=== PATIENT | female | born 2000 | race Caucasian/White ===

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

== ENCOUNTER 2024-12-31 10:06 | Outpatient (CLI) | payer OTHER, SELFPAY ==
--- NOTE | ~2024-12-31 | XR_ITS ---
EXAM/ PROCEDURE: XR wrist LT min 3V - 12/31/2024 10:28 CDT HISTORY: 24 years old Female with LEFT WRIST PAIN COMPARISON: None available TECHNIQUE: Four view(s) FINDINGS/ IMPRESSION: There are no fractures or dislocations.Joint spaces are within normal limits. Reviewed, dictated and finalized at location A.
--- OUTSIDE RECORDS SUMMARY | 2024-12-31 10:13 | XMS_ITS | Clinical Summary ---
Author Organization [facility] Address [facility] [place] [address] Care Team Providers Care Zipper Joiner Name Role Phone Bony Yeung Primary Care Provider + Vernon Conner MD Unavailable [phone] Allergies No known active allergies Medications ondansetron (ZOFRAN-ODT) 4 MG disintegrating tablet Take 1 tablet (4 mg total) by mouth every 8 (eight) hours as needed for Nausea. 10 tablet 3 Active Encounters Date Type Department Care Team Description 12/16/2024 7:36 AM CDT - 12/16/2024 11:59 PM CDT Hospital Encounter [facility] [place] [address] Scott Ellsworth MD Discharge Disposition: Home or Self Care (Routine Discharge) from Last 3 Months Social History Tobacco Use Types Packs/Day Years Used Date Smoking Tobacco: Never Passive Smoke Exposure: Never Smokeless Tobacco: Never Tobacco Cessation:Counseling Given: No Comments Unknown Sex and Gender Information Value Date Recorded Sex Assigned at Female 07/12/2024 2:10 PM STAFF SERVICES MANAGER Legal Sex Female 8:15 PM CDT Gender Identity Not on file Sexual Orientation Not on file Last Filed Vital Signs Vital Sign Reading Time Taken Comments Blood Pressure 100/60 07/12/2024 5:53 PM STAFF SERVICES MANAGER Pulse 72 07/12/2024 5:53 PM STAFF SERVICES MANAGER Temperature 36.7 C (98 F) 07/12/2024 5:53 PM STAFF SERVICES MANAGER Respiratory Rate 18 07/12/2024 5:53 PM STAFF SERVICES MANAGER Oxygen Saturation 100% 07/12/2024 5:53 PM STAFF SERVICES MANAGER Inhaled Oxygen Concentration - - Weight 73.5 kg (162 lb) 07/12/2024 3:08 PM STAFF SERVICES MANAGER Height 160 cm (5' 3) 07/12/2024 3:08 PM STAFF SERVICES MANAGER Body Mass Index 28.7 07/12/2024 3:08 PM STAFF SERVICES MANAGER Plan of Treatment Health Maintenance Due Date Last Done Comments Cervical Cancer Screening Pap Smear (Age 21 to 29) Every 3 Years 2002 Cervical Cancer Screening 2002 Annual Physical 2005 Meningococcal B Vaccine (1 of 2 - Standard) 2018 Hepatitis C 2020 COVID-19 Vaccine ( season) 2024 DTaP, Tdap and Td Vaccines (9 - Td or Tdap) 02/07/2031 02/07/2021, 12/16/2013, 12/16/2013, Additional history exists Hepatitis B Vaccines Completed 04/15/2003, 2002, 2002 Pneumococcal Vaccine: Pediatrics (0 to 5 Years) and At-Risk Patients (6 to 49 Years) Aged Out 04/15/2003, 01/15/2003, 2002 No longer eligible based on patient's age to complete this topic HPV Vaccines Completed 07/06/2014, 03/10, 12/16/2013 Meningococcal Vaccine Completed 05/01/2020, 014 RSV Immunizations Under 20 Months Aged Out No longer eligible based on patient's age to complete this topic Procedures Procedure Name Priority Date/Time Associated Diagnosis Comments PATHOLOGY Routine 12/16/2024 12:00 AM CDT from Last 3 Months Results * Pathology (12/16/2024 12:00 AM CDT) PATHOLOGY [facility] Department of Laboratory Medicine [address] [place] [address] , extension [phone] Pathology Report Surgical Pathology Report Name: CHANA SARGENT Specimen #: [id number] Age: 1 2000 (Age: 24) Location: [facility] Sex: F Procedure Date: 12/16/2024 Hospital #: [id number] Date Received: 12/17/2024 Date Reported: 12/20/2024 Provider: SCOTT ELLSWORTH MD Source: Gastric biopsies Clinical History: Acute vomiting FINAL DIAGNOSIS: Stomach, site not further specified, biopsy: -Mild chronic inactive gastritis. -No Helicobacter pylori organisms identified. Gross Description: Received in formalin, labeled with a patient label and as gastric biopsy is a 0.2 cm piece of collazo tissue. The specimen is entirely submitted in cassette 1. Gross examination (when applicable), interpretation, and sign out were performed at [facility], [address] [place] [address]. Electronically Signed Out BRIDGETTE SONG MD [facility] 12/16/2024 12/17/2024 12: 47 PM CDT Comment:Gastric biopsies us Scott Ellsworth MD PATHOLOGY/CYTOLOGY ORDERABLES nal Result [facility] [address] [place] [phone], [id number] from Last 3 Months Insurance Care Teams Zipper Joiner Relationship Specialty Start Date End Date Bony Yeung PA [address] [place] [address] [place] [id number] PCP - General PHYSICIAN MECHANIST 07/12/24 Vernon Conner MD [address] [place] [address] [facility] 07/12/24
--- OUTSIDE RECORDS SUMMARY | 2024-12-31 10:13 | XMS_ITS | Clinical Summary ---
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 Role Phone Unavailable Primary Care Provider Unavailabl e Social History Tobacco Use Types Packs/Day Years Used Date Smoking Tobacco: Never Assessed Comments Unknown Sex and Gender Information Value Date Recorded Sex Assigned at Not on file Legal Sex Female 3:39 PM CDT Gender Identity Not on file Sexual Orientation Not on file Plan of Treatment Upcoming Encounters Date Type Department Care Team (Late st Contact Info) Description 02/03/2025 10:30 AM CDT Office Visit [facility] Oncology and Hematology - [place] [address] [place] [address] Jessica Pimentel MD [address] [place] [address] Health Maintenance Due Date Last Done Comments CHLAMYDIA SCREENING (ANNUAL) 11-24 YEARS 2013 HPV VACCINES (1 - 3-dose series) 2017 DTAP/TDAP/TD VACCINES (1 - Tdap) 2021 HEPATITIS B VACCINES (1 of 3 - 19+ 3-dose series) 02/2022 CERVICAL CANCER SCREENING 2023 HPV/Cotest (21-29) 2023 PAP SMEAR 2023 INFLUENZA VACCINE (#1) 2025 Insurance [facility] MEDICAID
--- OUTSIDE RECORDS SUMMARY | 2024-12-31 10:13 | XMS_ITS | Data Portability ---
Author Organization [place] [facility], Main Office Address [address] [place] [address] Care Team Providers Care Director Pharmacology Name Role Phone BRIDGER FERNÁNDEZ Primary Care Provider BRIDGER FERNÁNDEZ Referring Provider Assessment No assessment recorded. Plan of Treatment Reminders Order Date Submit Date Provider Last Modified By Organization Details Last Modified Time Details Appointments Follow Up 15 2024 09:45A M DAVID Reeves Not available Not available Not available Any 15 2024 11:15A M DAVID Reeves Not available Not available Not available Lab urinalysi s, dipstick 2024 025 LEANNE [facility], [address] [place] [address], [phone], 12/03/2024 11:00:34 glucose, fingersti ck, blood 2024 025 jose [facility], [address] [place] [address], [phone], 12/03/2024 10:47:14 tissue transglut aminase iga Ab, serum 2024 025 [email or web address] [facility] (Lab), [address] [place], [address], 12/02/2024 08:31:01 tissue transglut aminase igg Ab, serum [address] (Lab), [address] [place], [address], 12/02/2024 08:30:54 unlisted lab - immunoglo bulin IgA [address] [place] [address] (Lab), [address] [place], [address], 12/02/2024 08:30:15 alpha-gal actosidas e A, serum [address] [place] [address] (Lab), [address] [place], [address], 12/09/2024 08:58:58 tick-born e disease panel [address] [place] [address] (Lab), [address] [place], [address], 12/09/2024 08:58:42 porphyrin fractions panel, QN, serum or plasma [address] [place] [address] (Lab), [address] [place], [address], 12/09/2024 08:58:29 iron + TIBC + ferritin, serum [address] [place] [address] (Lab), [address] [place], [address], 12/02/2024 08:16:36 vitamin B12 + folate, serum or blood [address] [place] [address] (Lab), [address] [place], [address], 12/02/2024 08:16:10 erythrocy te sedimenta tion rate by westergre n method [address] [place] [address] (Lab), [address] [place], [address], 12/02/2024 08:16:56 C-reactiv e protein, quantitat jules, serum or plasma [address] (Lab), [address] [place], [address], 12/02/2024 08:16:47 EDU (antinucl ear antibodie s) screen, serum [address] (Lab), [address] [place], [address], 12/02/2024 08:17:06 calprotec tin, stool [address] (Lab), [address] [place], [address], 12/02/2024 08:15:45 giardia + cryptospo ridium Ag, stool [address] (Lab), [address] [place], [address], 12/02/2024 08:15:57 gastroint estinal pathogens panel, PCR, stool [address] (Lab), [address] [place], [address], 12/02/2024 08:17:19 Referral rheumatol ogist referral - Please call patient to schedule an appointme nt. Thank you. 2024 025 TANJA Cruz MD, [address] [facility], [address], [place], [address], 12/13/2024 14:29:44 hematolog ist/oncol ogist referral - 24 y/o with mild anemia , now bruising easily . Has GI issues since June . diarrhea , nausea vomiting . sending to GI . Please eval and treat . Please call patient to schedule an appointme nt. Thank you. 2024 025 [email or web address] Tyrese Persaud MD, [address], [place], [address], 11/19/2024 15:22:06 Procedures upper endoscopy procedure (EGD) (PROC) 2024 025 LEANNE Not available 12/16/2024 14:26:31 Surgeries None recorded. Imaging XR, wrist, 3 or more view 2024 025 [facility], [address], [place], [address], 12/31/2024 10:43:17 Medication Orders dicyclomi ne 20 mg tablet [address]/Pharmacy #[id number], [address] [place], [address], 12/03/2024 10:04:35 omeprazol e 40 mg capsule,d elayed release [address]/Pharmacy #6930, [address] [place], [address], 12/03/2024 10:05:08 famotidin e 20 mg tablet [address]/Pharmacy #6930, [address] [place], [address], 12/03/2024 10:04:39 ferrous sulfate ER 142 mg (45 mg iron) tablet,ex tended release [address]/Pharmacy #[id number], [address] [place], [address], 12/03/2024 10:04:44 Patient TargetsNo targets recorded. Patient Instructions Encounter Date Encounter Id Patient Instructions Last Modified By Organization Details Last Modified Time 11/04/2024 [id number] anemia: care instructions [email or web address] Not available 11/04/2024 11:03:44 11/18/2024 [id number] away under detailed discussion patient had this problems with nausea vomiting and diarrhea for almost 5 6 months in between she traveled to that makes things worse diarrhea is somewhat getting better but still patient has mushy stools different possibilities have been discussed patient also has been smoking marijuana which she tried to increase it up to improve her appetite I did discuss with her about cannabinoid uses marijuana cyclical vomiting syndrome I advised the patient that she needs to stop that meanwhile we will do some blood tests she does have celiac disease that runs in the family we will also check for porphyria as well as we will check that tick titers Alphagan antibodies. We will also check the stool calprotectin levels I advised the patient that we will proceed with the upper endoscopy to rule out any peptic ulcer disease if all these tests are negative would recommend patient to get a colonoscopy done to rule out any inflammatory bowel disease meanwhile I advised the patient that she needs to stop marijuana totally as it is not going to make the symptoms better and might make things worse and these symptoms might be because of all marijuana use [email or web address] Not available 11/18/2024 16:35:33 Reason for Referral 24 y/o with mild anemia , no w bruising easily . Has GI issues since June . diarrhea , nausea vomiting . sending to GI . Please eval and treat . Please call patient to schedule an appointment. Thank you. Referring Physician: Bony Yeung, Family Medicine, Encounter Date: 10/21/2024 Bulk System Operator Referral for Anti-nuclear factor detected Please call patient to schedule an appointment. Thank you. Referring Physician: Bridger Fernández, Family Medicine, Encounter Date: 12/03/2024 Results Created Date Observation Date Name Description Value Unit Range Abnormal Flag Note LastModifiedBy Organization Detail LastModifiedTime 12/04/19 25 12/03/2024 urina lysis , dipst ick Color [facility] Not Available [address], [address], 12/03/2024 10:40:51 12/04/19 25 12/03/2024 urina lysis , dipst ick Appearance Clear Not Available [address], [address], 12/03/2024 10:40:51 12/04/19 25 12/03/2024 urina lysis , dipst ick Leukocytes (reference range: negative yvrose/ l) Negati ve Not Available [address], [address], 12/03/2024 10:40:51 12/04/19 25 12/03/2024 urina lysis , dipst ick Nitrite (reference rage: negative mg/dl) negati ve Not Available [address], [address], 12/03/2024 10:40:51 12/04/19 25 12/03/2024 urina lysis , dipst ick Urobilinogen (reference range: 0.2-1 mg/dl) 0.2 Not Available [address], [address], 12/03/2024 10:40:51 12/04/19 25 12/03/2024 urina lysis , dipst ick Protein (reference range: negative mg/dl) Negati ve Not Available [address], [address], 12/03/2024 10:40:51 12/04/19 25 12/03/2024 urina lysis , dipst ick pH (reference range: 5-7) 5.5 Not Available [address], [address], 12/03/2024 10:40:51 12/04/19 25 12/03/2024 urina lysis , dipst ick Blood (reference range: negative Axel/ l) Hemoly zed: Trace Not Available [address], [address], 12/03/2024 10:40:51 12/04/19 25 12/03/2024 urina lysis , dipst ick Specific [place] (reference range: 1.005-1.030) 1.030 Not Available [address], [address], 12/03/2024 10:40:51 12/04/19 25 12/03/2024 urina lysis , dipst ick Ketone (reference range: negative mg/dl) Negati ve Not Available [address], [address], 12/03/2024 10:40:51 12/04/19 25 12/03/2024 urina lysis , dipst ick Bilirubin (reference range: negative mg/dl) Small Not Available [address], [address], 12/03/2024 10:40:51 12/04/19 25 12/03/2024 urina lysis , dipst ick Glucose (reference range: negative mg/dl) Negati ve Not Available [address], [address], 12/03/2024 10:40:51 12/04/19 25 12/03/2024 gluco se, finge rstic k, blood Blood Glucose: mg/dl 97 Not Available [address], [address], 12/03/2024 10:47:04 Result Notes None recorded. 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 808133838 Completed 12/03/2024 DAVID Reeves [address], [address], [place], [address], [email or web address] [facility] 5 11:31:41 Eruption 846214412 Completed 12/03/2024 DAVID Reeves [address], [place], [address], [facility] 5 11:31:41 Attentio n deficit hyperact ivity disorder , predomin antly inattent jules type 73766153 Completed 12/03/2024 DAVID Reeves [address], [place], [address], [facility] 5 11:31:41 Attentio n deficit hyperact ivity disorder 498841510 Completed 12/03/2024 DAVID Reeves [address], [place], [address], [facility] 5 11:31:41 Eczema 54244529 Completed 12/03/2024 DAVID Reeves [address], [place], [address], [facility] 5 11:31:41 Hand pain 43057084 Completed 12/03/2024 DAVID Reeves [address], [place], [address], [facility] 5 11:31:41 Pustular follicul itis 46257623 Completed 12/03/2024 DAVID Reeves [address], [place], [address], [facility] 5 11:31:41 Pain of left hip joint 68855103782 9100 Completed 202212/03/2024 DAVID Reeves [address], [place], [address], [employer] [facility] 5 11:31:41 Acute urinary tract infectio n 580785324 Completed 202212/03/2024 DAVID Reeves [address], [place], [address], [employer] [facility] 5 11:31:41 Family history of diabetes mellitus 544350049 Completed 202212/03/2024 DAVID Reeves [address], [place], [address], [facility] 11:31:40 Upper respirat ory infectio n 58874782 Completed 202312/03/2024 DAVID Reeves [address], [place], [address], [facility] 11:31:41 Strain of tendon of left wrist 68638481102 180882 Completed 202312/03/2024 DAVID Reeves [address], [place], [address], [employer] [facility] 5 11:31:40 Pain of left wrist 46645513018 9102 Completed 202312/03/2024 DAVID Reeves [address], [place], [address], [email or web address] [facility] 10:41:33 Cyst of right ovary 66239912010 081264 Completed 202412/03/2024 DAVID Reeves [address], [place], [address], [employer] [facility] [employer] 5 11:31:40 Nausea 710578604 Completed 202412/03/2024 Rocael Ellsworth MD [address], [place], [address], [employer] [facility] 12:29:24 Diarrhea 42567622 Active 2024 BLAINE Salgado [address], [place], [address], [employer] [facility] 10:57:44 Nausea and vomiting 55706981 Completed 202412/03/2024 DAVID Reeves [address], [place], [address], [employer] [facility] 11:31:41 Vomiting 828940123 Completed 202412/03/2024 DAVID Reeves [address], [place], [address], [employer] [facility] 11:31:41 Abdomina l pain 92926659 Completed 202412/03/2024 DAVID Reeves [address], [place], [address], [email or web address] [facility] 11:31:41 Anemia 561151502 Active 2024 Joni Knowles MD [address], [place], [address], [employer] [facility] 10:32:33 Celiac disease 840022790 Active 2024 BLAINE Salgado [address], [place], [address], [employer] [facility] 11:06:16 Gastroes ophageal reflux disease without esophagi tis 147825177 Completed 202412/03/2024 DAVID Reeves [address], [place], [address], [employer] [facility] 11:31:41 Attentio n deficit hyperact ivity disorder , combined type 78277628 Active 2024 Joni Knowles MD [address], [place], [address], [facility] [employer] [facility] [employer] [facility] 10:37:24 Cyclical vomiting syndrome 71001047 Active 2024 Joni Knowles MD [address], [place], [address], [employer] [facility] [employer] [facility] 11:02:42 Irritabl e bowel syndrome 62814734 Active 2024 Joni Knowles MD [address], [place], [address], [employer] [facility] [employer] [facility] 11:03:20 Acute vomiting 22515798 Completed 202412/03/2024 DAVID Reeves [address], [place], [address], [employer] [facility] [employer] [facility] 11:31:55 Anti-nuc lear factor detected 693963016 Active 2024 DAVID Reeves [address], [place], [address], [employer] [facility] [employer] [facility] 10:37:29 Increase d frequenc y of urinatio n 510062401 Active 2024 DAVID Reeves [address], [place], [address], [facility] [employer] [facility] [employer] [facility] 5 10:40:45 Unintent ional weight loss 160013644 Active 2024 DAVID Reeves [address], [place], [address], [facility] [employer] [facility] [employer] [facility] 5 11:32:01 Arthriti s 9307778 Active 2024 Rocael Ellsworth MD [address] [address], [place], [address], [employer] 12:26:16 Fatigue 31538157 Active 2024 Rocael Ellsworth MD [address] [address], [place], [address], [employer] 5 12:26:16 Pain of multiple joints 74771770 Active 2024 Rocael Ellsworth MD [address] [address], [place], [address], [employer] 12:27:16 Raised antinucl ear antibody 876618865 Active 2024 Rocael Ellsworth MD [address] [address], [place], [address], [employer] 12:28:38 Nausea 717005048 Active 2024 Rocael Ellsworth MD [address] [address], [place], [address], [employer] 12:29:24 Pain of left wrist 49869604437 9102 Active 2024 DAVID Reeves [address], [address], [employer] 10:41:33 Problem Notes None recorded. Procedures Surgical History Date Name Laterality Status Provider Name and Address Organization Details Recorded Time 11/25/2024 Date of Last Pap Smear completed Eugenia Miguel RN [facility] 12/31/2024 10:16:33 Imaging Results None recorded. Procedure Notes None recorded. Medical Equipment None Reported. Allergies No known drug allergies Medications Name Sig Start Date Stop Date Status Note LastModified by Organization Details LastModified Time amoxicillin 500 mg capsule 04/03 completed Not Available Not Available Not Available triamcinolo ne acetonide 0.5 % topical cream APPLY TOPICALLY TO THE AFFECTED AREA TWICE DAILY NEEDED 09/07 completed Not Available Not Available Not Available azithromyci n 250 mg tablet G HCANA 2 TS PO ON DAY 1 THEN 1 T D FOR 4 MORE DAYS active Not Available Not Available No t Available ibuprofen 800 mg tablet TAKE 1 TABLET BY MOUTH THREE TIMES A DAY WITH MEALS 12/03 completed Not Available Not Available Not Available hydrocodone 5 mg-acetamin ophen 325 mg tablet TAKE 1 TABLET BY MOUTH TWICE DAILY NEEDED 07/27 completed Not Available Not Available Not Available phenazopyri dine 200 mg tablet TAKE 1 TABLET BY MOUTH THREE TIMES DAILY FOR 2 DAYS 06/26 completed Not Available Not Available Not Available prednisone 20 mg tablet TAKE 1 TABLET BY MOUTH EVERY DAY FOR 5 DAYS 09/23 completed Not Available Not Available Not Available metronidazo le 500 mg tablet TAKE 1 TABLET BY MOUTH EVERY 8 HOURS FOR 7 DAYS 11/04 completed Not Available Not Available Not Available ciprofloxac in 500 mg tablet TAKE 1 TABLET BY MOUTH EVERY 12 HOURS FOR 10 DAYS 10/07 completed Not Available Not Available Not Available sulfamethox azole 800 mg-trimetho prim 160 mg tablet TAKE 1 TABLET BY MOUTH EVERY 12 HOURS FOR 10 DAYS 06/26 completed Not Available Not Available Not Available omeprazole 40 mg capsule,del ayed release Take 1 capsule every day by oral route in the morning for 30 days. 12/03 completed Not Available Not Available Not Available triamcinolo ne acetonide 0.1 % topical cream Apply 1 applicati on twice a day by topical route for 30 days. active Not Available Not Available No t Available ondansetron 8 mg disintegrat ing tablet PLACE 1 TABLET ON THE TONGUE TWICE A DAY 12/03 completed Not Available Not Available Not Available dexmethylph enidate 10 mg tablet TK 1 T PO AT 2 TO 3 PM D 06/23 completed Not Available Not Available Not Available Bactroban 2 % topical cream Apply 1 applicati on 3 times a day by topical route. active Not Available Not Available No t Available famotidine 20 mg tablet Take 1 tablet every day by oral route at bedtime for 30 days. 12/03 completed Not Available Not Available Not Available dicyclomine 20 mg tablet Take 1 tablet every 8 hours by oral route as directed for 30 days. 12/03 completed Not Available Not Available Not Available meclizine 25 mg tablet TAKE 2 TABLETS BY MOUTH DAILY NEEDED FOR 30 DAYS 09/07 completed Not Available Not Available Not Available oseltamivir 75 mg capsule 06/23 completed Not Available Not Available Not Available ferrous sulfate 325 mg (65 mg iron) tablet TAKE 1 TABLET BY MOUTH EVERY DAY FOR 30 DAYS 12/03 completed Not Available Not Available Not Available Motion Sickness Relief 50 mg tablet 1 tab po once a daily as needed for 30 days 10/07 completed Not Available Not Available Not Available mupirocin 2 % topical ointment Apply by topical route up to 3 times a day. active Not Available Not Available No t Available methylpredn isolone 4 mg tablets in a dose pack FOLLOW PACKAGE DIRECTION S 09/23 completed Not Available Not Available Not Available ondansetron 4 mg disintegrat ing tablet PLACE 1 TABLET EVERY DAY BY TRANSLING UAL ROUTE NEEDED FOR 30 DAYS. 10/07 completed Not Available Not Available Not Available sertraline 50 mg tablet Take 1/2 tab daily x 2 weeks. Then 1 tab daily thereafte r 06/23 completed Not Available Not Available Not Available doxycycline hyclate 100 mg tablet TAKE 1 TABLET BY MOUTH TWICE DAILY FOR 10 DAYS 09/23 completed Not Available Not Available Not Available dicyclomine 10 mg capsule TAKE 1 CAPSULE BY MOUTH 3 TIMES A DAY BEFORE MEALS 10/07 completed Not Available Not Available Not Available amoxicillin 875 mg-potassiu m clavulanate 125 mg tablet TAKE ONE TABLET BY MOUTH EVERY 12 HOURS FOR 10 DAYS 09/23 completed Not Available Not Available Not Available escitalopra m 10 mg tablet TAKE 1 TABLET BY MOUTH EVERY DAY 04/03 completed Not Available Not Available Not Available minocycline 100 mg tablet TK ONE T PO BID 12/07 completed Not Available Not Available Not Available Tri-Sprinte c (28) 0.18 mg(7)/0.215 mg(7)/0.25 mg(7)-0.035 mg tablet Take 1 tablet every day by oral route. active Not Available Not Available No t Available Focalin XR 20 mg capsule,ext ended release TAKE 1 CAPSULE BY MOUTH EVERY DAY 12/03 completed Not Available Not Available Not Available ferrous sulfate ER 142 mg (45 mg iron) tablet,exte nded release Take 1 tablet every day by oral route for 30 days. 12/03 completed Not Available Not Available Not Available Kyleena 17.5 mcg/24 hr (up to 5 years) 19.5 mg intrauterin e device Take by intrauter ine route. 2021 active Not Available Not Available Not Avai lable Vitals Date Recorded Body height Body mass index (BMI) Body weight Body temperature Heart rate Oxygen saturation Oxygen saturation in Arterial blood by Pulse oximetry Systolic And Diastolic Provider Name and Address Organization Details Last Updated DateTime 5 160.02 cm 22.1 kg/m2 33518.0 5 g 97.8 [degF] 108 /min 98 % 98 % 98/62 mm[Hg] Jen Clemons [facility] [employer] 5 10:33:41 Date Recorded Body height Body mass index (BMI) Body weight Body temperature Oxygen saturation Oxygen saturation in Arterial blood by Pulse oximetry Heart rate Systolic And Diastolic Provider Name and Address Organization Details Last Updated DateTime 5 160.02 cm 22.4 kg/m2 51644.4 4 g 98.1 [degF] 99 % 99 % 52 /min 100/64 mm[Hg] Darcy Judge RN [facility] [employer] [facility] 5 10:27:37 Date Recorded Body height Body mass index (BMI) Body weight Heart rate Oxygen saturation Oxygen saturation in Arterial blood by Pulse oximetry Systolic And Diastolic Provider Name and Address Organization Details Last Updated DateTime 5 160.02 cm 22 kg/m2 71626.4 5 g 97 /min 98 % 98 % 122/82 mm[Hg] Eva Morley [facility] 5 15:37:19 Date Recorded Body height Body mass index (BMI) Body weight Body temperature Heart rate Oxygen saturation Oxygen saturation in Arterial blood by Pulse oximetry Respiratory rate Pain severity - 0-10 verbal numeric rating [Score] - Reported Systolic And Diastolic Provider Name and Address Organization Details Last Updated DateTime 5 160.02 cm 21.3 kg/m2 30616.8 3 g 97.6 [degF] 82 /min 99 % 99 % 20 /min 0 112/60 mm[Hg] Eugenia Miguel RN [facility] [employer] [facility] 10:08:32 Date Recorded Body height Body mass index (BMI) Body weight Body temperature Heart rate Oxygen saturation Oxygen saturation in Arterial blood by Pulse oximetry Pain severity - 0-10 verbal numeric rating [Score] - Reported Respiratory rate Systolic And Diastolic Provider Name and Address Organization Details Last Updated DateTime 160.02 cm 20.6 kg/m2 78280.5 1 g 97.3 [degF] 59 /min 99 % 99 % 0 20 /min 90/64 mm[Hg] Eugenia Miguel RN [facility] 10:14:42 Social History Question Answer Notes LastModified by Organizat ion Details LastModified Time Tobacco Smoking Status Never Smoker SYLVIA Romano, [employer] [facility] 10/01/2023 15:40:13 Do You Have An Advance Directive? No Information not available 12/03/2024 Is Blood Transfusion Acceptable In An Emergency? No Information not available 12/03/2024 What Is Your Level Of Caffeine Consumption? Moderate Information not available 12/03/2024 In The 14 Days Before Symptom Onset, Have You Had Close Contact With A Laboratory-confi rmed COVID-19 While That Case Was Ill? No Information not available 12/03/2024 In The 14 Days Before Symptom Onset, Have You Had Close Contact With A Person Who Is Under Investigation For COVID-19 While That Person Was Ill? No Information not available 12/03/2024 What Type Of Diet Are You Following? REGULAR [id number] Information not available 08/07/2022 Have There Been Any Changes To Your Family Or Social Situation? Yes Losing Weight Information not available 12/03/2024 Are There Any Guns Present In Your Home? Yes Information not available 12/03/2024 Do You Use Insect Repellent Routinely? Yes Information not available 12/03/2024 Where Do You Live? SingleLevelHouse Information not available 12/03/2024 Do You Have A Medical Power Of Event Coordinator? No Information not available 12/03/2024 How Many Children Do You Have? 1 Information not available 12/03/2024 Do You Have Any Pets? No Information not available 12/03/2024 What Is Your Relationship Status? Single Information not available 12/03/2024 Do You Use Your Seat Belt Or Car Seat Routinely? Yes Information not available 12/03/2024 Do You Have Smoke And Carbon Monoxide Detectors In Your Home? Yes Information not available 12/03/2024 Are You Passively Exposed To Smoke? No Information not available 12/03/2024 Are There Any Smokers In Your House? No Information not available 12/03/2024 Do You Participate In Social Media? Yes Information not available 12/03/2024 Do You Use Sunscreen Routinely? Yes Information not available 12/03/2024 Have You Recently Traveled Abroad? No Information not available 12/03/2024 Sex: Unknown Functional Status Question Answer Note LastModified by Organization D etails LastModified Time What is your level of alcohol consumption? None [email or web address] Information not available 10/01/2023 Are you currently employed? Yes Information not available 12/03/2024 What is your occupation? [employer] Information not available 12/03/2024 Mental Status Question Answer Note LastModified by Organization D etails LastModified Time Do you feel stressed (tense, restless, nervous, or anxious, or unable to sleep at night)? [id number] Information not available 12/31/2024 Family History Relationship Description Onset Age of this Age Resolved Age Notes LastModified by Organization Details LastModified Time Mother Hypertensive disorder [email or web address] Not available 2023 15:39:45 Maternal Grandmother Diabetes mellitus [email or web address] Not available 2023 15:39:59 Medical History Condition Response OTHER # 1 Y HEARTBURN / REFLUX Y ADD/ADHD Y Gynecological History Statement/Question Response Abnormal Pap N Flow Moderate Date of LMP 10/12/2024 Frequency of Cycle (Q days) Duration of Flow (days) 3 Date of Last Pap Smear 11/25/2024 Obstetrics History GPAL:G 1 P 0 0 0 1 Type Value Living 1 Total 1 Immunizations Vaccine Type Date Status Note Provider Nam e and Address Organization Details Recorded Time HPV, quadrivalent 4 completed VICTOR MANUEL Clayton, Metrilo [facility] 12/31/2024 10:09:48 DTaP 4 completed Not Available [facility] 07/20/2023 11:04:52 Hep A, ped/adol, 2 dose 4 completed VICTOR MANUEL Clayton, Metrilo [facility] 12/31/2024 10:09:48 MMR 8 completed Not Available [facility] 07/20/2023 11:04:51 IPV 8 completed Not Available [facility] 07/20/2023 11:04:51 Hib (HbOC) 8 completed Not Available [facility] 07/20/2023 11:04:52 DTaP 8 completed Not Available [facility] 07/20/2023 11:04:52 varicella 8 completed Not Available [facility] 07/20/2023 11:04:51 Hib (HbOC) 4 completed VICTOR MANUEL Clayton, Metrilo [facility] 12/31/2024 10:09:48 DTaP 4 completed Not Available [facility] 07/20/2023 11:04:52 varicella 4 completed Not Available [facility] 07/20/2023 11:04:51 MMR 4 completed Not Available [facility] 07/20/2023 11:04:51 Hep B, adolescent or pediatric 3 completed Not Available [facility] 07/20/2023 11:04:51 DTaP 3 completed Not Available [facility] 07/20/2023 11:04:52 OPV, trivalent 3 completed Not Available [facility] 07/20/2023 11:04:51 Hib (HbOC) 3 completed VICTOR MANUEL Clayton, Metrilo [facility] 12/31/2024 10:09:48 Hib (HbOC) 3 completed Eugenia Miguel RN null, [place] 12/31/2024 10:09:48 DTaP 3 completed Not Available [facility] 07/20/2023 11:04:52 OPV, trivalent 3 completed Not Available [facility] 07/20/2023 11:04:51 Hib (HbOC) 3 completed Eugenia Miguel RN null, [facility] 12/31/2024 10:09:48 OPV, trivalent 3 completed Not Available [facility] 07/20/2023 11:04:51 DTaP 3 completed Not Available [facility] 07/20/2023 11:04:52 Hep B, adolescent or pediatric 3 completed Not Available [facility] 07/20/2023 11:04:51 Hep B, adolescent or pediatric 3 completed Eugenia Miguel RN null, [facility] 12/31/2024 10:09:48 Past Encounters Encounter ID Performer Location Encounter Start Date Encounter Closed Date Diagnosis/Indication Diagnosis SNOMED-CT Code Diagnosis ICD10 Code Diagnosis Note [id number] Vernon Martinez MD [facility] [place] [address] [facility] [place] [address] 11/02/2021 00:00:00 11/02/2021 21:06:52 [id number] Vernon Martinez MD [facility] [place] [address] [place] [address] 12/07/2021 00:00:00 12/08/2021 11:53:14 [id number] Vernon Martinez MD [facility] [place] [address] [place] [address] 04/05/2022 00:00:00 04/06/2022 11:55:23 [id number] Vernon Martinez MD [facility] [place] [address] [place] [address] 04/03/2023 11:04:34 04/03/2023 11:42:05 Adult health examination 049844420 Z00.00 Pain of le ft hip joint 5454273608 34266 M25.552 Heat to area NSAIDs [id number] Vernon Martinez MD [facility] [place] [address] [place] [address] 05/29/2023 12:17:08 05/29/2023 12:52:56 Acute urinary tract infection 181408495 N39.0 Attention deficit hyperactivity disorder, 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 Family his tory of diabetes mellitus 468607214 Z83.3 [id number] Vernon Martinez MD [facility] [place] [address] [place] [address] 06/26/2023 11:00:52 06/26/2023 11:39:37 Acute urinary tract infection 612818317 N39.0 Attention deficit hyperactivity disorder, predominantly inattentive type 31298223 F90.0 Eczema 73225587 L30.9 [id number] Joni Knowles MD [facility] [place] [facility] [place] [address] 09/24/2023 13:53:12 09/24/2023 14:28:17 Strain of tendon of left wrist 8278131241 1797912 S66.912A Attention deficit hyperactivity disorder, predominantly inattentive type 38616969 F90.0 [id number] Fredrick Pedro MD [facility] [place] [address] [place] [address] 10/01/2023 15:23:35 10/01/2023 16:01:26 Pain of left wrist 0293084391 46323 M25.427 [id number] Joni Knowles MD [facility] [place] [address] [place] [address] 10/09/2023 12:12:58 10/09/2023 12:35:45 Attention deficit hyperactivity disorder, predominantly inattentive type 63272394 F90.0 Pain of le ft hip joint 8470068227 70762 M25.552 Strain of tendon of left wrist 3926760913 8165651 S66.912A [id number] Joni Knowles MD [address] [address] 07/19/2024 11:48:08 07/19/2024 12:25:07 Cyst of right ovary 3997293608 7510137 N83.201 Nausea 637902449 R11.0 Attention deficit hyperactivity disorder, predominantly inattentive type 96109376 F90.0 Long-term current use of stimulant 9352569124 5126820 Z79.734 [id number] Joni Knowles MD [address] [address] 09/07/2024 10:13:25 09/07/2024 12:05:12 Attention deficit hyperactivity disorder, predominantly inattentive type 35057646 F90.0 Diarrhea 15355807 R19.7 Nausea 525054338 R11.0 Vomiting 806325867 R11.1 0 Abdominal pain 93772685 R10.9 Anemia 476523427 D64.9 Acute urin tonie tract infection 591342741 N39.0 [id number] Joni Knowles MD [address] [address] 09/23/2024 11:51:04 09/23/2024 12:07:12 [id number] Joni Knowles MD [address] [address] 10/07/2024 09:51:08 10/07/2024 10:51:57 Diarrhea 26630543 R19.7 Nausea 735969276 R11.0 Attention deficit hyperactivity disorder, predominantly inattentive type 59926722 F90.0 Celiac disease 847861663 K90.0 [id number] Joni Knowles MD [address] [address] 10/21/2024 10:20:46 10/21/2024 12:11:17 Anemia 391531483 D64.9 [id number] Joni Knowles MD [address] [address] 11/04/2024 10:10:41 11/04/2024 11:20:23 Nausea and vomiting 74098463 R11.2 Anemia 579903521 D64.9 Gastroesop hageal reflux disease without esophagitis 659554875 K21.9 Attention deficit hyperactivity disorder, combined type 17258683 F90.2 Cyclical v omiting syndrome 50356639 R11.15 ?? Irritable bowel syndrome 80589381 K58.9 ?? [id number] Rocael Ellsworth MD [facility] General Surgery [address] [place] [address] 11/18/2024 15:33:17 11/18/2024 17:17:42 Abdominal pain 50284122 R10.9 Acute vomiting 39270339 R11.10 [id number] Joni Knowles MD [address] [address] 12/03/2024 09:52:31 12/03/2024 11:33:48 Anti-nuclear factor detected 981810777 R76.8 likely infectious process Increased frequency of urination 576383576 R35.0 For the last week, increased urination, urge to urinate, small amount of output Cyclical v omiting syndrome 03199800 R11.15 Is seeing GIDrinking protein drinksZofr an ineffectiv e Unintentio nal weight loss 516114112 R63.4 down 50 lbs [id number] Joni Knowles MD [address] [address] 12/31/2024 09:56:30 12/31/2024 11:07:59 Pain of left wrist 2431652729 87956 M25.532 related to fall at work Unintentio nal weight loss 309912510 R63.4 down 50 lbs Will continue FU with GI and rheumatolo gy Health Concerns Section Related Observation LastModified by Organization Detai ls LastModified Time None Recorded Concern Status LastModified by Organization Details LastModified Time None Recorded Advance Directives Directive N: Payers Insurance Date Sequence Insurance Name Policy Number Policy Barker Covered Member ID Barker Member ID Guarantor Name 12/29/2024 1 [facility] - DOS ON OR AFTER 20 (MEDICAID REPLACEMENT - HMO) Chana Cook [id number] Chana Cook Notes Date Note Type Note Provider Name and Address Organization Details Recorded Time 10/21/2024 text/html ROS as noted in the HPI did pass out momentarily twice . vomiting less , stools a little formed now , the stronger ondansetron seems to help , stronger dicyclomine too . bruising a little better ... BLAINE Salgado [address], [place], [address], [employer] 10/26/2024 14:44:11 11/04/2024 text/html ACV: C/o nausea and vomiting for last 5-6 months, on/off. Pt has seen Mason for this and he has referred pt to GI and pt will be seeing him in 2 weeks. Denies any BM changes/concerns/blo od in stool. Denies any chance of . Pt says she had about 4-5 preg tests done recently and all are neg. Pt has IUD too. Pt had irregular and heavy periods before, but for last few months, its much better now. Pt had mild Anemia and Mason has referred her to Hemat. Denies any mood problems. Pt wants to f/u with Bridger as her new PCP. Joni Knowles MD [address], [place], [address], [employer] 11/04/2024 11:05:27 11/18/2024 text/html patient is seen 1st time in the office patient says that in June she went to [facility] but before going there few days before she started having problems with nausea vomiting and some diarrhea but then when she came back and got worse according to her she usually weighs around 165 lb but it went to 116 still has lot of nausea and vomiting appetite is okay but with nausea vomiting and abdominal pain she does not want to eat that much also says her diarrhea is getting better the stool is mushy denies any blood in the stool. Patient did have an ultrasound and lab workup which was reviewed also according to her she has some menstrual irregularities also says that her iron levels are very low. Patient's last hemoglobin was 12.9 all the records were reviewed also she according to her she has seen some tics and cockroaches in the house according to her she lives in a open forearm area Rocael Ellsworth MD [address], [place], [address], [employer] 11/18/2024 16:36:05 12/03/2024 text/html Chana Cook is a 24 year old female patient here today to establish care. She was under the care of Mason Yeung. She has been ill for the last 6 months she has been vomiting consistently. She is down 50 lbs (162-116). She has seen GI, significant lab panel indicated positive EDU - pattern likely from disease process. Pt would still like to see rheumatology.She is scheduled for an EGD on 12/16/24, she would also like colonoscopy due to weight loss -advised to contact GI doctor. She has had episodes of syncope, most recently related to lab draw.She has been told she has iron deficiency anemia and has an appointment with hematology for 02/03/25. Most recent TIBC/iron panel unremarkable. She has concerns with increase urinary frequency. She notes that she often feels she has to urinate but has very little output. She notes that she fell at work on 12/02/24 and injured her left shoulder and wrist. She decided at that point to not seek emergency care. She does have some swelling to the left wrist now but minor pain and full active ROM. DAVID Reeves [address], [place], [address], [employer] 12/03/2024 11:32:39 12/31/2024 text/html Chana Cook is a 24 year old female patient here today for a month FU She has been ill for the last 6 months she has been vomiting consistently. She is down 50 lbs (162-116). She has seen GI, significant lab panel indicated positive EDU - pattern likely from disease process. Pt would still like to see rheumatology.She is scheduled for an EGD on 12/16/24, she would also like colonoscopy due to weight loss -advised to contact GI doctor. She has had episodes of syncope, most recently related to lab draw.She has been told she has iron deficiency anemia and has an appointment with hematology for 02/03/25. Most recent TIBC/iron panel unremarkable. She notes that she fell at work on 12/02/24 and injured her left shoulder and wrist. She decided at that point to not seek emergency care. She does have some swelling to the left wrist now but minor pain and full active ROM. Bridger Fernández, [employer] [address] [facility] [facility] [address], [place], [address], [place] [facility] 12/31/2024 11:07:58 OBGyn Episode No OBEpisode recorded.
--- OUTSIDE RECORDS SUMMARY | 2024-12-31 10:13 | XMS_ITS | Continuity of Care Document ---
Author Organization [facility], [facility] Address [address] [place] [address] Care Team Providers Care Smoking Pipe Maker Name Role Phone BRIDGER FERNÁNDEZ Primary Care Provider [phone] BRIDGER FERNÁNDEZ Referring Provider [phone] Assessment No assessment recorded. Plan of Treatment Reminders Order Date Submit Date Provider Last Modified By Organization Details Last Modified Time Details Appointments Follow Up 15 2024 09:45A M DAVID Reeves Not available Not available Not available Any 2024 11:15A M DAVID Reeves Not available Not available Not available Lab None recorded . Referral None recorded . Procedures None recorded . Surgeries None recorded . Imaging XR, wrist, 3 or more view [address] [place] [address], [address] [place] [address], [address], 12/31/2024 10:43:17 Medication Orders None recorded . Patient TargetsNo targets recorded. Patient InstructionsNo instructions recorded. Reason for Referral None Reported. Results Created Date Observation Date Name Description Value Unit Range Abnormal Flag Note LastModifiedBy Organization Detail LastModifiedTime 12/04/1912/03/2024 urina lysis , dipst ick Color Charles Not Available [facility] [address] [facility], [place], [address], 12/03/2024 10:40:51 12/04/1912/03/2024 urina lysis , dipst ick Appearance Clear Not Available [address], [address], 12/03/2024 10:40:51 12/04/19 25 12/03/2024 urina lysis , dipst ick Leukocytes (reference range: negative yvrose/ l) Negati ve Not Available [address], [address], 12/03/2024 10:40:51 12/04/19 25 12/03/2024 urina lysis , dipst ick Nitrite (reference rage: negative mg/dl) negati ve Not Available [address], [address], 12/03/2024 10:40:51 12/04/19 25 12/03/2024 urina lysis , dipst ick Urobilinogen (reference range: 0.2-1 mg/dl) 0.2 Not Available [address], [address], 12/03/2024 10:40:51 12/04/19 25 12/03/2024 urina lysis , dipst ick Protein (reference range: negative mg/dl) Negati ve Not Available [address], [address], 12/03/2024 10:40:51 12/04/19 25 12/03/2024 urina lysis , dipst ick pH (reference range: 5-7) 5.5 Not Available [address], [address], 12/03/2024 10:40:51 12/04/19 25 12/03/2024 urina lysis , dipst ick Blood (reference range: negative Axel/ l) Hemoly zed: Trace Not Available [address], [address], 12/03/2024 10:40:51 12/04/19 25 12/03/2024 urina lysis , dipst ick Specific [place] (reference range: 1.005-1.030) 1.030 Not Available [address], [address], 12/03/2024 10:40:51 12/04/19 25 12/03/2024 urina lysis , dipst ick Ketone (reference range: negative mg/dl) Negati ve Not Available [address], [address], 12/03/2024 10:40:51 12/04/19 25 12/03/2024 urina lysis , dipst ick Bilirubin (reference range: negative mg/dl) Small Not Available [address], [address], 12/03/2024 10:40:51 12/04/19 25 12/03/2024 urina lysis , dipst ick Glucose (reference range: negative mg/dl) Negati ve Not Available [address], [address], 12/03/2024 10:40:51 12/04/19 25 12/03/2024 gluco se, finge rstic k, blood Blood Glucose: mg/dl 97 Not Available [address], [address], 12/03/2024 10:47:04 Result Notes None recorded. 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 389749789 Completed 12/03/2024 DAVID Reeves [address], [place], [address], [employer] 5 11:31:41 Eruption 072879341 Completed 12/03/2024 DAVID Reeves [address], [place], [address], [employer] 5 11:31:41 Attentio n deficit hyperact ivity disorder , predomin antly inattent jules type 23612699 Completed 12/03/2024 DAVID Reeves [address], [place], [address], [employer] 5 11:31:41 Attentio n deficit hyperact ivity disorder 656621317 Completed 12/03/2024 DAVID Reeves [address], [place], [address], [employer] 5 11:31:41 Eczema 63863804 Completed 12/03/2024 DAVID Reeves [address], [place], [address], [employer] 5 11:31:41 Hand pain 82472003 Completed 12/03/2024 DAVID Reeves [address], [place], [address], [employer] 5 11:31:41 Pustular follicul itis 03429214 Completed 12/03/2024 DAVID Reeves [address], [place], [address], [employer] 11:31:41 Pain of left hip joint 84725672365 9100 Completed 202212/03/2024 DAVID Reeves [address], [place], [address], [employer] [facility] [employer] [facility] 5 11:31:41 Acute urinary tract infectio n 308048575 Completed 202212/03/2024 DAVID Reeves [address], [place], [address], [employer] [facility] [employer] [facility] 5 11:31:41 Family history of diabetes mellitus 738289188 Completed 202212/03/2024 DAVID Reeves [address], [place], [address], [employer] [facility] [employer] [facility] 5 11:31:40 Upper respirat ory infectio n 91598050 Completed 202312/03/2024 DAVID Reeves [address], [place], [address], [employer] [facility] 5 11:31:41 Strain of tendon of left wrist 70410075234 999624 Completed 202312/03/2024 DAVID Reeves [address], [place], [address], [employer] [facility] [employer] [facility] 5 11:31:40 Pain of left wrist 65888160709 9102 Completed 202312/03/2024 DAVID Reeves [address], [place], [address], [employer] [facility] [employer] [facility] 5 10:41:33 Cyst of right ovary 08822226476 578861 Completed 202412/03/2024 DAVID Reeves [address], [place], [address], [employer] [facility] [employer] [facility] 11:31:40 Nausea 347591583 Completed 202412/03/2024 Rocael Ellsworth MD [address], [place], [address], [facility] 12:29:24 Diarrhea 77543251 Active 2024 BLAINE Salgado [address], [place], [address], [facility] 10:57:44 Nausea and vomiting 32699461 Completed 202412/03/2024 DAVID Reeves [address], [place], [address], [facility] 11:31:41 Vomiting 669002180 Completed 202412/03/2024 DAVID Reeves [address], [place], [address], [facility] 11:31:41 Abdomina l pain 55800595 Completed 202412/03/2024 DAVID Reeves [address], [place], [address], [facility] 11:31:41 Anemia 854046584 Active 2024 Joni Knowles MD [address], [place], [address], [facility] 10:32:33 Celiac disease 628614240 Active 2024 BLAINE Salgado [address], [place], [address], [facility] 11:06:16 Gastroes ophageal reflux disease without esophagi tis 621183996 Completed 202412/03/2024 DAVID Reeves [address], [place], [address], [employer] [facility] [employer] [facility] 11:31:41 Attentio n deficit hyperact ivity disorder , combined type 61830337 Active 2024 Joni Knowles MD [address], [place], [address], [facility] [employer] [facility] [employer] [facility] 10:37:24 Cyclical vomiting syndrome 70456416 Active 2024 Joni Knowles MD [address], [place], [address], [employer] [facility] [employer] [facility] 11:02:42 Irritabl e bowel syndrome 88453179 Active 2024 Joni Knowles MD [address], [place], [address], [employer] [facility] [employer] [facility] 11:03:20 Acute vomiting 03522032 Completed 202412/03/2024 DAVID Reeves [address], [place], [address], [employer] [facility] [employer] [facility] 11:31:55 Anti-nuc lear factor detected 323933862 Active 2024 DAVID Reeves [address], [place], [address], [employer] [facility] [employer] [facility] 10:37:29 Increase d frequenc y of urinatio n 931881903 Active 2024 DAVID Reeves [address], [place], [address], [employer] [facility] [employer] [facility] 5 10:40:45 Unintent ional weight loss 718233330 Active [address]eves [address], [place], [address], [employer] [facility] [employer] [facility] 5 11:32:01 Arthriti s 3050561 Active 2024 Rocael Ellsworth MD [address] [facility] [address], [place], [address], [employer] 12:26:16 Fatigue 37165507 Active 2024 Rocael Ellsworth MD [address] [facility] [place], [address] [address], [place], [address], [employer] 12:26:16 Pain of multiple joints 01549644 Active 2024 Rocael Ellsworth MD [address] [address], [place], [address], [employer] 12:27:16 Raised antinucl ear antibody 719296799 Active 2024 Rocael Ellsworth MD [address] [facility] [place], [address] [address], [place], [address], [employer] 12:28:38 Nausea 664799704 Active 2024 Rocael Ellsworth MD [address] [address], [place], [address], [employer] 12:29:24 Pain of left wrist 31766056239 9102 Active 2024 DAVID Reeves [address] [address], [place], [address], [employer] 10:41:33 Problem Notes None recorded. Procedures Surgical History Date Name Laterality Status Provider Name and Address Organization Details Recorded Time 11/25/2024 Date of Last Pap Smear completed Eugenia Miguel RN [facility] 9+ 12/31/2024 10:16:33 Imaging Results None recorded. Procedure [...] Available azithromyci n 250 mg tablet G CHANA 2 TS PO ON DAY 1 THEN [...] Last Updated DateTime 160.02 cm 20.6 kg/m2 03422.5 1 g 97.3 [degF] 59 /min 99 % 99 % 0 20 /min 90/64 mm[Hg] Eugenia Miguel RN [employer] 10:14:42 Social History Question Answer Notes LastModified by Organizat ion Details LastModified Time Tobacco Smoking Status Never Smoker SYLVIA Romano, [employer] 10/01/2023 15:40:13 Do You Have An Advance [...] Type Of Diet Are You Following? REGULAR [id number] Information not available 08/07/2022 Have There Been Any Changes To Your Family Or Social Situation? Yes Losing Weight Information not available 12/03/2024 Are There Any Guns Present In Your Home? Yes Information not available 12/03/2024 Do You Use Insect Repellent Routinely? Yes Information not available 12/03/2024 [facility] not available 12/03/2024 Do You Have A Medical Power Of Inspector [employer]? No Information not available 12/03/2024 How Many [...] not available 12/03/2024 What is your occupation? [employer] Information not available 12/03/2024 Mental Status Question Answer Note LastModified by Organization D etails LastModified Time Do you feel stressed (tense, restless, nervous, or anxious, or unable to sleep at night)? [id number] Information not available 12/31/2024 Family History Relationship [...] HPV, quadrivalent 4 completed VICTOR MANUEL Clayton, [employer] [facility] 9+ 12/31/2024 10:09:48 DTaP 4 completed Not Available [facility] 07/20/2023 11:04:52 Hep A, ped/adol, 2 dose 4 completed VICTOR MANUEL Clayton, [employer] 9+ 12/31/2024 10:09:48 MMR 8 completed Not Available [facility] 07/20/2023 11:04:51 IPV 8 completed Not Available [facility] 07/20/2023 11:04:51 Hib (HbOC) 8 completed Not Available [facility] 07/20/2023 11:04:52 DTaP 8 completed Not Available [facility] 07/20/2023 11:04:52 varicella 8 completed Not Available [facility] 07/20/2023 11:04:51 Hib (HbOC) 4 completed VICTOR MANUEL Clayton, [employer] [facility] 9+ 12/31/2024 10:09:48 DTaP 4 completed Not Available [facility] 07/20/2023 11:04:52 varicella 4 completed Not Available [facility] 07/20/2023 11:04:51 MMR 4 completed Not Available [facility] 07/20/2023 11:04:51 Hep B, adolescent or pediatric 3 completed Not Available [employer] 07/20/2023 11:04:51 DTaP 3 completed Not Available [facility] 07/20/2023 11:04:52 OPV, trivalent 3 completed Not Available [facility] 07/20/2023 11:04:51 Hib (HbOC) 3 completed Eugenia Miguel RN null, [facility] 12/31/2024 10:09:48 Hib (HbOC) 3 completed Eugenia Miguel RN null, [facility] 12/31/2024 10:09:48 DTaP 3 completed Not Available [facility] 07/20/2023 11:04:52 OPV, trivalent 3 completed Not Available [facility] 07/20/2023 11:04:51 Hib (HbOC) 3 completed Eugenia Miguel RN null, [facility] 12/31/2024 10:09:48 OPV, trivalent 3 completed Not Available [facility] 07/20/2023 11:04:51 DTaP 3 completed Not Available [facility] 07/20/2023 11:04:52 Hep B, adolescent or pediatric 3 completed Not Available [facility] 07/20/2023 11:04:51 Hep B, adolescent or pediatric 3 completed VICTOR MANUEL Clayton, [facility] 12/31/2024 10:09:48 Past Encounters Encounter ID Performer Location Encounter Start Date Encounter Closed Date Diagnosis/Indication Diagnosis SNOMED-CT Code Diagnosis ICD10 Code Diagnosis Note [id number] Joni Knowles MD [facility] [address] [address] 12/03/2024 09:52:31 12/03/2024 11:33:48 Anti-nuclear factor detected 487423341 R76.8 likely infectious process Increased frequency of urination 877117989 R35.0 For the last week, increased urination, urge to urinate, small amount of output Cyclical v omiting syndrome 92334757 R11.15 Is seeing GIDrinking protein drinksZofr an ineffectiv e Unintentio nal weight loss 315728072 R63.4 down 50 lbs [id number] Joni Knowles MD [facility] [address] [place] [address] 12/31/2024 09:56:30 12/31/2024 11:07:59 Pain of left wrist 8553802512 08926 M25.532 related to fall at work Unintentio nal weight loss 788444948 R63.4 down 50 lbs Will continue FU with GI and rheumatolo gy Health Concerns Section Related Observation LastModified by Organization Detai ls LastModified Time None Recorded Concern Status LastModified by Organization Details LastModified Time None Recorded Payers Encounter Date Sequence Insurance Name Policy Number Policy Barker Covered Member ID Barker Member ID Guarantor Name 12/31/2024 1 [facility] - DOS ON OR AFTER 20 (MEDICAID REPLACEMENT - HMO) Chana Cook [id number] Chana Cook Notes Date Note Type Note Provider Name and Address Organization Details Recorded Time 12/31/2024 text/html Chana Cook is a 24 [...] pain and full active ROM. Bridger Fernández, FAN BALANCER [address] [facility] [place], [facility] [address], [place], [address], [facility] [employer] 12/31/2024 11:07:58 OBGyn Episode No OBEpisode recorded.
== END 2024-12-31 10:07 | disposition home or self-care (01) ==
DX: M25.532 Pain in left wrist (principal)
CPT/HCPCS: 73110

== ENCOUNTER 2025-02-03 11:15 | Outpatient (CLI) | payer OTHER, SELFPAY ==
--- OUTSIDE RECORDS SUMMARY | 2025-02-03 10:30 | XMS_ITS | Encounter Summary ---
Author Organization [facility] Elias [facility] Address [address] [place] [address] Care Team Providers Care Swamper Name Role Phone Unavailable Primary Care Provider Unavailabl e Encounter Details Date Type Department Care Team (Late st Contact Info) Description 02/03/2025 10:30 AM CDT Office Visit [facility] Oncology and Hematology - [place] [address] [place] [address] Jessica Pimentel MD [address] [place] [address] Chronic anemia (Primary Dx) Social History Tobacco Use Types Packs/Day Years Used Date Smoking Tobacco: Never Smokeless Tobacco: Never Tobacco Cessation:Counseling Given: Not Answered Alcohol Use Standard Drinks/Week Comments Yes 0 (1 standard drink = 0.6 oz pur e alcohol) Socially sometimes Comments Unknown Sex and Gender Information Value Date Recorded Sex Assigned at Not on file Legal Sex Female 3:39 PM CDT Gender Identity Not on file Sexual Orientation Not on file documented as of this encounter Last Filed Vital Signs Vital Sign Reading Time Taken Comments Blood Pressure 106/68 02/03/2025 10:18 AM CDT Pulse 59 02/03/2025 10:18 AM CDT Temperature 36.8 C (98.3 F) 02/03/2025 10:18 AM CDT Respiratory Rate 14 02/03/2025 10:18 AM CDT Oxygen Saturation 98% 02/03/2025 10:18 AM CDT Inhaled Oxygen Concentration - - Weight 51.4 kg (113 lb 6.4 oz) 02/03/2025 10:18 AM CDT Height 157.5 cm (5' 2) 02/03/2025 10:18 AM CDT Body Mass Index 20.74 02/03/2025 10:18 AM CDT documented in this encounter Plan of Treatment Upcoming Encounters Date Type Department Care Team (Late st Contact Info) Description 03/10/2025 4:30 PM CDT Telephone Check Up [facility] Oncology and Hematology - [place] [address] [facility] [address] [place] [address] Tyrese Persaud MD [address] [facility] [address] [place] [address] Scheduled Orders Name Type Priority Associated Diagnoses Orde r Schedule CBC WITH DIFFERENTIAL Lab Stat Chronic anemia Expected: 02/03/2025, Expires: 02/03/2026 COMPREHENSIVE METABOLIC PANEL Lab Routine Chronic anemia Expected: 02/03/2025, Expires: 02/03/2026 IRON, TIBC, AND PERCENT SATURATION Lab Routine Chronic anemia Expected: 02/03/2025, Expires: 02/03/2026 FERRITIN Lab Routine Chronic anemia Expected: 02/03/2025, Expires: 02/03/2026 VITAMIN B12 AND FOLATE Lab Routine Chronic anemia Expected: 02/03/2025, Expires: 02/03/2026 documented as of this encounter Visit Diagnoses Diagnosis Chronic anemia- Primary Anemia, unspecified documented in this encounter
--- OUTSIDE RECORDS SUMMARY | 2025-02-03 11:22 | XMS_ITS | Clinical Summary ---
Author Organization [facility] Maddie delgado Ye[place] Address [address] [place] [address] Care Team Providers Care Painter And Grader Cork Name Role Phone Unavailable Primary Care Provider Unavailabl e Allergies No known active allergies Medications dexmethylphenid ate (Focalin XR) 20 mg Extended Release capsule Take 20 mg by mouth daily. Active levonorgestreL (Kyleena) 17.5 mcg/24 hr (5 yrs) 19.5 mg IUD by Intrauterine route. Active inulin (PREBIOTIC FIBER ORAL) Take by mouth. Act jules Active Problems Problem Noted Date Diagnosed Date Chronic anemia 02/03/2025 Encounters Date Type Department Care Team Description 02/03/2025 10:30 AM CDT Office Visit [facility] Oncology and Hematology - [place] [address] [place] [address] Jessica Pimentel MD Chronic anemia (Primary Dx) from Last 3 Months Family History Medical History Relation Name Comments No Known Problems Brother 1 No Known Problems Brother 2 No Known Problems Child Diabetes Father Diabetes Maternal Grandmother Skin Cancer Maternal Grandmother No Known Problems Mother No Known Problems Sister 1 No Known Problems Sister 2 No Known Problems Sister 3 Relation Name Status Comments Brother 1 Alive Brother 2 Alive Child Alive Father Alive Maternal Grandmother Alive Mother Alive Sister 1 Alive Sister 2 Alive Sister 3 Alive Social History Tobacco Use Types Packs/Day Years [...] Mass Index 20.74 02/03/2025 10:18 AM CDT Plan of Treatment Upcoming Encounters Date Type Department Care Team (Late st Contact Info) Description 03/10/2025 4:30 PM CDT Telephone Check Up [facility] Oncology and Hematology - [place] [address] [facility] [address] [place] [address] Tyrese Persaud MD [address] [facility] [address] [place] [address] Health Maintenance Due Date Last Done Comments CHLAMYDIA SCREENING (ANNUAL) 11-24 YEARS 2013 HPV VACCINES (2 - 2-dose series) 06/18/2014 12/17/19 14 CERVICAL CANCER SCREENING 2023 HPV/Cotest (21-29) 2023 PAP SMEAR 2023 DTAP/TDAP/TD VACCINES (7 - Tdap) 12/17/2023 12/16/2013, 01/11/2008, 06/04/2004, Additional history exists Preventative Visit-Managed Medicaid 04/04/2024 04/03/2023 INFLUENZA VACCINE (#1) 2025 HEPATITIS B VACCINES Completed 04/15/2003, 2002, 2002 Insurance
--- OUTSIDE RECORDS SUMMARY | 2025-02-03 11:23 | XMS_ITS | Clinical Summary ---
Author Organization [facility] Address [facility] [place] [address] Care Team Providers Care Farm Management Agent Name Role Phone Bony Yeung Primary Care Provider + Vernon Conner MD Unavailable [phone] Allergies No known active allergies Medications ondansetron (ZOFRAN-ODT) 4 MG disintegrating tablet Take 1 tablet (4 mg total) by mouth every 8 (eight) hours as needed for Nausea. 10 tablet 3 Active Encounters Date Type Department Care Team Description 12/16/2024 7:36 AM CDT - 12/16/2024 11:59 PM CDT Hospital Encounter [facility] [place] [address] Scott Ellsworth MD Discharge Disposition: Home or Self Care (Routine Discharge) from Last 3 Months Social History Tobacco Use Types Packs/Day Years Used Date Smoking Tobacco: Never Passive Smoke Exposure: Never Smokeless Tobacco: Never Tobacco Cessation:Counseling Given: No Comments Unknown Sex and Gender Information Value Date Recorded Sex Assigned at Female 07/12/2024 2:10 PM NIPPLE MAKER Legal Sex Female 8:15 PM CDT Gender Identity Not on file Sexual Orientation Not on file Last Filed Vital Signs Vital Sign Reading Time Taken Comments Blood Pressure 100/60 07/12/2024 5:53 PM NIPPLE MAKER Pulse 72 07/12/2024 5:53 PM NIPPLE MAKER Temperature 36.7 C (98 F) 07/12/2024 5:53 PM NIPPLE MAKER Respiratory Rate 18 07/12/2024 5:53 PM NIPPLE MAKER Oxygen Saturation 100% 07/12/2024 5:53 PM NIPPLE MAKER Inhaled Oxygen Concentration - - Weight 73.5 kg (162 lb) 07/12/2024 3:08 PM NIPPLE MAKER Height 160 cm (5' 3) 07/12/2024 3:08 PM NIPPLE MAKER Body Mass Index 28.7 07/12/2024 3:08 PM NIPPLE MAKER Plan of Treatment Health Maintenance Due Date [...] * Pathology (12/16/2024 12:00 AM CDT) PATHOLOGY [facility] Department of Laboratory Medicine [address] [place] [address] , extension [phone] Pathology Report Surgical Pathology Report Name: CHANA SARGENT Specimen #: [id number] Age: 1 2000 (Age: 24) Location: [facility] Sex: F Procedure Date: 12/16/2024 Hospital #: [id number] Date Received: 12/17/2024 Date Reported: 12/20/2024 Provider: [...] interpretation, and sign out were performed at [facility], [address] [place] [address]. 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 07/12/24
--- OUTSIDE RECORDS SUMMARY | 2025-02-03 11:23 | XMS_ITS | Clinical Summary ---
Author Organization [facility] [employer] [facility] Address [address] [place] [address] Care Team Providers Care Radiologic Technology Program Director Name Role Phone Vernon Martinez MD Primary Care Provider [phone] Vernon Martinez MD Unavailable [phone] Source Comments [facility] [employer] [employer] [facility],non-owned Affiliates and Associated Physician Practices is amultiple site organization consisting of ambulatory clinics and hospital sitesin [place], [place], [place] and [place]. This disclosure is being madepursuant to the Care Everywhere program and may not contain all information available regarding this patient. Last updated 18.[facility] [employer] [employer] [facility] Allergies No known active allergies Medications * Be aware that medications may not be up to date on this document. Alwaysverify current medications with the patient. dexmethylphenida te CR 24hr (FOCALIN XR) 20 MG capsule Take 20 mg by mouth every morning. Active Social History Tobacco Use Types Packs/Day Years Used Date Smoking Tobacco: Never Assessed Comments Unknown Sex and Gender Information Value Date Recorded Sex Assigned at Not on file Legal Sex Female 1:37 PM CDT Gender Identity Not on file Sexual Orientation Not on file Plan of Treatment Upcoming Encounters Date Type Department Care Team (Late st Contact Info) Description 03/30/2025 1:30 PM CDT Office Visit [facility] - Rheumatology [address] [place] [phone] Ravindra Varela MD [address] [place] [address] Health Maintenance Due Date Last Done Comments HIV SCREENING 2017 HPV VACCINE (1 - 3-dose series) 2017 CHLAMYDIA/GONORRHEA SCREENING 2018 MENINGOCOCCAL (Group B) VACC INE SHARED DECISION-MAKING (1 of 2 - Standard) 2018 HEPATITIS C SCREENING 06/12/2020 DTAP/TDAP/TD VACCINES (1 - Tdap) 2021 HEPATITIS B VACCINE (1 of 3 - 19+ 3-dose series) 2021 PAP SMEAR 2023 COVID-19 VACCINE (1 - 2023-2 5 season) 2024 DEPRESSION SCREENING 06/09/2024 INFLUENZA VACCINE (#1) 2025 ZOSTER VACCINE (1 of 2) 2052 HIB VACCINE Aged Out No longer eligi ble based on patient's age to complete this topic MENINGOCOCCAL GROUPS A/C/Y/W VACCINE Aged Out No longer eligible b ased on patient's age to complete this topic PNEUMOCOCCAL VACCINE Aged Out No long er eligible based on patient's age to complete this topic Insurance [facility] MEDICA[facility] - [place] [employer] PLAN [facility] [place] - [place] Care Teams Radiologic Technology Program Director Relationship Specialty Start Date End Date Vernon Martinez MD [address] [place] [address] [address] [place] [phone] PCP - General 05/14/21 Vernon Martinez MD [facility] [place] [phone] Family Medicine 05/14/21
[2025-02-03 11:38] LABS: Hematocrit 42.2 % (37.0-47.0); Hemoglobin 14.2 g/dL (12.0-15.0); Immature Granulocyte Percent A 0.2 % (0-0.5); Lymphocytes Absolute Auto 2.31 K/mm3 (0.9-3.2); Mean Corpuscular HGB Conc 33.6 g/dl (32-36); Mean Corpuscular Hemoglobin 28.9 pg (26-34); Mean Corpuscular Volume 85.8 fl (80-100); Nucleated Red Blood Cells Absolute Auto 0.000 K/mm3 (0.0-0.012); Nucleated Red Blood Cells Perc 0.0 % (0.0-0.2); Platelet Count Result 195 k/mm3 (150-375); Red Blood Count 4.92 M/mm3 (4.2-5.4); White Blood Count 5.7 K/mm3 (4.5-10.0)
[2025-02-03 12:15] LABS: Iron 102 ug/dL (37-170)
[2025-02-03 12:16] LABS: Alanine Aminotransferase 20 U/L (6-35); Albumin Level 5.1 g/dL (3.5-5.1); Alkaline Phosphatase 44 U/L (38-126); Anion Gap 10 mmol/L (4-12); Aspartate Amino Transferase 27 U/L (14-36); Bilirubin,Total 1.0 mg/dL (0.2-1.3); Blood Urea Nitrogen 13 mg/dL (7-17); Calcium 10.1 mg/dL (8.4-10.2); Carbon Dioxide 26 mmol/L (22-30); Chloride 102 mmol/L (98-107); Estimated Glomerular Filt Rate > 60; Glucose 93 mg/dL (65-110); Potassium 4.3 mmol/L (3.4-5.0); Sodium 138 mmol/L (137-145); Total Protein 8.5 g/dL (6.3-8.2)
[2025-02-03 12:25] LABS: Percent Iron Saturation 32 % (20-50)
[2025-02-03 12:56] LABS: Ferritin 36.90 ng/mL (6.24-137)
[2025-02-03 13:27] LABS: Vitamin B12 240.0 pg/mL (239-931)
== END 2025-02-03 11:16 | disposition home or self-care (01) ==
LOC: ANHLAB 11:18
PROVIDERS: Visit Provider Internal Medicine Hematology & Oncology
DX: D64.9 Anemia, unspecified (principal)
CPT/HCPCS: 36415; 80053; 82607; 82728; 82746; 83540; 83550; 85025